=== PATIENT | female | born 1960 | race Caucasian/White ===

== ENCOUNTER → 2018-06-20 | Outpatient (REF) | payer OTHER | LOC: M LAB REF 17:30 | DX: R05 Cough (principal) ==

== ENCOUNTER → 2018-06-26 | Outpatient (CLI) | payer OTHER | LOC: M RAD 10:31 | DX: J43.9 Emphysema, unspecified (principal); J84.10 Pulmonary fibrosis, unspecified | CPT/HCPCS: 71250 ==

== ENCOUNTER → 2018-12-29 | Outpatient (CLI) | payer OTHER ==
[~2018-12-29] MED LIST: /ADVA50050 IN; /DULO30CA OR; AMIT10TA2 PO; CELE10TA PO; CENESTIN PO; CITRACEL; LYRI75CA OR; MELOPOW OR; PRIL20CA OR; PRILOSEC OTC OR; TYLENOL ES PO; VIACTIV OR; ZANT150T PO; [UNRECOGNIZED DRUG - OTHER]; [UNRECOGNIZED DRUG - OTHER] PO; citracal PO
[2018-12-29 12:46] LABS: BLOOD UREA NITROGEN 7 MG/DL (7-18); CREATININE FOR GFR 0.66 MG/DL (0.55-1.30); GLOMERULAR FILTRATION RATE > 60.0 (>51)
== END ==
LOC: M LAB 12:04
PROVIDERS: ATTEND Internal Medicine Pulmonary Disease
DX: J43.2 Centrilobular emphysema (principal)

== ENCOUNTER → 2019-01-01 | Outpatient (CLI) | payer OTHER ==
[~2019-01-01] MED LIST changes: -/ADVA50050 IN; -/DULO30CA OR; +ADVA1AER2 IN; +CYMB1CAP5 OR; +ISOVUE-370 76% 125ML VIAL (Q9967 PER ML) As Ordered ONE
--- NOTE | 2019-01-01 10:21 | REP ---
CT STUDY OF THE CHEST WITH IV CONTRAST: HISTORY: Nonspecific abnormal lung field findings. Comparison CT study June 26, 2018. April 05, [address] is also reviewed. CT CONTRAST DOSE: 75 mL of intravenous Isovue 370. CT FINDINGS: Preliminary hose cementer images are unremarkable. There are emphysematous changes again noted in the upper lobes, right a little more extensively than left. There is minimal linear fibrosis in the bases. No pulmonary nodule is seen. No infiltrate or mass lesion is observed. There is no evidence of pleural or pericardial effusion. No hilar or mediastinal mass or adenopathy has developed. There are some scattered normal-sized mediastinal lymph nodes. These are felt to be unchanged from comparison study April 20, 2018. No extrathoracic mass or adenopathy is seen. There are three small focal low density areas in the liver consistent with cysts. These are unchanged. No infiltrate is seen. No adrenal lesion is observed on either side. Accessory splenules are noted in the left upper quadrant. IMPRESSION: Emphysematous changes noted in the upper lobes and bibasilar linear fibrosis. Otherwise no active cardiopulmonary disease seen. Electronically Signed by Dony Ambrosio MD 01/01/2019 01:16 P
== END ==
LOC: M RAD 09:23
PROVIDERS: ATTEND Internal Medicine Pulmonary Disease
DX: R91.8 Other nonspecific abnormal finding of lung field (principal)
CPT/HCPCS: 71260; Q9967

== ENCOUNTER → 2019-12-24 | Outpatient (CLI) | payer OTHER ==
[~2019-12-24] MED LIST changes: -ISOVUE-370 76% 125ML VIAL (Q9967 PER ML) As Ordered ONE
--- NOTE | 2019-12-24 11:43 | REP ---
Clinical: Lung screening. History smoking. Comparison: 01/01/2019, 06/26/2018, 04/05/2018 Technique: Axial low-dose noncontrast images from the thoracic inlet to the upper abdomen using lung screening technique. Findings: The lung champion are well-aerated. Mild emphysematous changes are appreciated along with minimal basilar scarring primarily noted at the base of the lingula. Small amount of dependent changes at the posterior right base also identified. Calcified granuloma in the anterior right lower lobe (image 71) noted. No consolidation, significant nodule or mass lesion is appreciated. No pleural effusion/reaction or pneumothorax. Tracheobronchial tree is patent. Mediastinum demonstrates mild atherosclerotic changes of the coronary arteries without cardiomegaly. Impression: Lung-RADS category II. Nonacute benign findings. No suspicious nodule or abnormality. Management recommendations include annual low-dose follow-up examination. Electronically Signed by Delfino Norris MD 12/24/2019 11:34 A
== END ==
LOC: M RAD 10:11
PROVIDERS: ATTEND Internal Medicine Pulmonary Disease
DX: F17.218 Nicotine dependence, cigarettes, with other nicotine-induced disorders (principal)

== ENCOUNTER → 2020-09-29 | Outpatient (REF) | payer OTHER | LOC: M LAB REF 16:44 | PROVIDERS: ATTEND Internal Medicine Pulmonary Disease | DX: J44.9 Chronic obstructive pulmonary disease, unspecified (principal) ==

== ENCOUNTER → 2021-01-04 | Outpatient (CLI) | payer OTHER ==
--- NOTE | 2021-01-04 11:37 | REP ---
INDICATION: LUNG SCREENING COMPARISON: 12/24/2019, 04/19/2018 TECHNIQUE: Axial noncontrast images from the thoracic inlet to the upper abdomen using low-dose lung screening technique (LDCT). FINDINGS: 16 mm noncalcified lesion with subtle spiculated margin in the apical right lower lobe represents a new finding and is consistent with malignancy unless proven otherwise. IMPRESSION: New 16 mm lesion in the apical right upper lobe is most consistent with neoplasm and requires further investigation. PET-CT and biopsy are recommended. <Electronically signed by Delfino Norris > 01/04/21 [id number]
== END ==
LOC: M RAD 10:20
PROVIDERS: ATTEND Internal Medicine Pulmonary Disease
DX: Z12.2 Encounter for screening for malignant neoplasm of respiratory organs (principal); R91.8 Other nonspecific abnormal finding of lung field; F17.218 Nicotine dependence, cigarettes, with other nicotine-induced disorders

== ENCOUNTER → 2021-01-26 | Outpatient (REF) | payer OTHER ==
[2021-01-26 18:26] LABS: PLATELET COUNT, AUTOMATED 302 10^3/uL (150-450)
[2021-01-26 18:44] LABS: BLOOD UREA NITROGEN 5 MG/DL (7-18); CREATININE FOR GFR 0.62 MG/DL (0.55-1.30); GLOMERULAR FILTRATION RATE > 60.0 (>45)
[2021-01-26 18:45] LABS: INR 0.93; PROTHROMBIN TIME 12.7 SECONDS (12.5-14.3)
== END ==
LOC: M LAB REF 16:50
PROVIDERS: ATTEND Internal Medicine Pulmonary Disease
DX: Z01.812 Encounter for preprocedural laboratory examination (principal); R91.1 Solitary pulmonary nodule

== ENCOUNTER → 2021-02-08 | Outpatient (CLI) | payer OTHER ==
[~2021-02-08] MED LIST changes: +ISOVUE-370 76% 100ML VIAL As Ordered ONE
--- NOTE | 2021-02-09 06:23 | REP ---
INDICATION: SOLITARY PULMONARY NODULE COMPARISON: Multiple examinations between 01/04/2021 and 04/19/2018 TECHNIQUE: Axial contrast enhanced images from the thoracic inlet to the upper abdomen with coronal and sagittal reformations using 75 ml Isovue 370 intravenous contrast [address] CT examination was performed using the following dose reduction techniques: Automated exposure control, adjustment of mA and/or kv according to the patient's size, and use of iterative reconstruction technique. FINDINGS: The 16 mm mass in the apical right lower lobe with mild spiculated margins is unchanged from most recent prior examination and represents a new finding as compared through examinations dating back through 04/19/2018. Right hilar lymph node measuring up to approximately 13 mm short axis diameter is identified along with smaller nonspecific mediastinal lymph nodes. No further nodule, mass or pleural effusion. Chronic COPD/emphysematous disease along with mild bibasilar fibroatelectatic changes are noted. IMPRESSION: 1. 16 mm spiculated lesion in the apical right lower lobe with 13 mm right hilar lymph node. As previously suggested, PET-CT and biopsy are recommended. 2. Underlying COPD/emphysematous disease with mild bibasilar fibroatelectatic changes. <Electronically signed by Delfino Norris > 02/09/21 0619
== END ==
LOC: M RAD 11:02
PROVIDERS: ATTEND Internal Medicine Pulmonary Disease
DX: R91.1 Solitary pulmonary nodule (principal)

== ENCOUNTER → 2021-02-09 | Outpatient (CLI) | payer OTHER ==
[~2021-02-09] MED LIST changes: +ADV500INH INH; +ALB2.5NEB INH; +AMIT75TA PO; +ATOR1TAB21 PO; +CALTCHW5 PO; +D31000TA2 PO; +DULO1CAP5 PO; +FISH1000 PO; +GABA600T4 PO; +INCR1INH INH; -ISOVUE-370 76% 100ML VIAL As Ordered ONE; +OMEP40CA97 PO; +PROAAER10 INH; +VITATAB73 PO
--- NOTE | 2021-02-09 14:26 | PFTRPT ---
Height: 66.50 Inches Weight: 185.00 Lbs BSA: 1.95 Diagnosis: R91.1 DATE: 02/09/2021 ORDERING PHYSICIAN: SEDRICK MURDOCK MD Pre and post bronchodilator studies have excellent technical quality. Forced vital capacity is reduced. FEV1 out of proportion. Obstructive index is therefore reduced. Expiratory limit of the flow-volume loop is consistent with significant flow rate limitation. Significant bronchodilator response is identified. Total lung capacity is elevated. Residual volume borderline for entrapment. Diffusing capacity is significantly reduced and does not correct for alveolar volume. Hemoglobin is acceptable at 14.3. Airway resistance and conductance are normal. IMPRESSION: 1. At least moderate obstructive ventilatory impairment with underlying air trapping and significant emphysema suspected. 2. Favorable bronchodilator response. Please correlate clinically. MTDD
== END ==
LOC: M CARPUL 13:51
PROVIDERS: ATTEND Internal Medicine Pulmonary Disease
DX: R91.1 Solitary pulmonary nodule (principal)

== ENCOUNTER → 2021-02-12 | Outpatient (CLI) | payer OTHER ==
--- NOTE | 2021-02-12 20:44 | ECGEPIP ---
[facility] Test Date: 2021-02-12 Pat Name: JOURDAN SMITH Department: Room: - Gender: Female Unit Supervisor: RONNY : 1960 Requested By: CHARLEE Simental Order Number: [id number] Reading MD: Gerardo Young Measurements Intervals [place] Rate: 87 P: 74 [place]: 164 QRS: 58 QRSD: 82 T: 66 QT: 362 QTc: 435 Interpretive Statements Normal sinus rhythm Within normal limits. No prior ECG available for comparison at the time of interpretation. Electronically Signed on 02-12-2021 20:43:46 EDT by Gerardo Young
== END ==
LOC: M CARPUL 14:45
PROVIDERS: ATTEND Anesthesiology
DX: Z01.818 Encounter for other preprocedural examination (principal)

== ENCOUNTER 2021-02-15 06:11 | Day surgery (SDC) | payer OTHER ==
[~2021-02-15] VITALS: Ht 167.6 cm; Wt 79.4 kg
[~2021-02-15 06:11] MED LIST changes: +ALBUTEROL SULFATE 2.5 MG/0.5 ML INH NEB SOLN INH ONE; +LIDOCAINE 4% INJ 5ML AMP INH ONE; +LR 1,000 ML IV ONE
[2021-02-15] MEDS ORDERED: THROMBIN SOLN 20,000 UNITS KIT As Ordered ONE (07:17)
[2021-02-15] MEDS ORDERED: CETACAINE SPRAY 5GM As Ordered ONE (07:17)
[2021-02-15] MEDS ORDERED: LIDOCAINE 4% TOPICAL SOLN 50 ML BTL As Ordered ONE (07:17)
[2021-02-15] MEDS ORDERED: LIDOCAINE VISCOUS 2% SOLN 15ML UDC As Ordered ONE (07:17)
[2021-02-15] MEDS ORDERED: LIDOCAINE 1% SDV 30ML VIAL As Ordered ONE (07:17)
[2021-02-15] MEDS ORDERED: EPINEPHrine 1MG/10ML SYRINGE 1.5IN As Ordered ONE (07:17)
[2021-02-15] MEDS ORDERED: fentaNYL 100 MCG/2 ML INJECTION (J3010) As Ordered ONE (07:19)
[2021-02-15] MEDS ORDERED: dexameTHASONE 4 MG/ML 1ML VIAL (J1100 PER 1MG) As Ordered ONE (07:19)
[2021-02-15] MEDS ORDERED: ONDANSETRON 4MG/2ML VIAL As Ordered ONE ×2 (07:19→08:22)
[2021-02-15] MEDS ORDERED: ROCURONIUM BROMIDE 50 MG/5 ML VIAL As Ordered ONE (07:19)
[2021-02-15] MEDS ORDERED: propofoL 200 MG/20 ML VIAL As Ordered ONE (07:19)
[2021-02-15] MEDS ORDERED: LIDOCAINE 2% 100MG/5ML SDV (FOR ANES.) As Ordered ONE (07:19)
[2021-02-15] MEDS ORDERED: MIDAZOLAM INJ 2MG/2ML VIAL (J2250 PER 1MG) As Ordered ONE (07:19)
[2021-02-15] MEDS ORDERED: SUGAMMADEX SODIUM 500 MG/5 ML VIAL (BRIDION) As Ordered ONE (08:22)
[2021-02-15] MEDS ORDERED: PHENYLephrine 500MCG 5ML (100MCG/ML) SYRINGE As Ordered ONE (08:23)
[2021-02-15] MEDS ORDERED: SEVOFLURANE INHAL SOLN 250 ML BTL As Ordered ONE (08:30)
[2021-02-15] MEDS ORDERED: fentaNYL 100 MCG/2 ML INJECTION (J3010) IV PRN (10:10)
[2021-02-15] MEDS ORDERED: LR 1,000 ML IV SCH (10:10)
[2021-02-15] MEDS ORDERED: oxyCODONE 5MG TAB PO PRN (10:10)
[2021-02-15] MEDS ORDERED: ONDANSETRON 4MG/2ML VIAL IV PRN (10:10)
--- NOTE | 2021-02-15 10:27 | RO ---
OPERATIVE NOTE DATE OF OPERATION: 02/15/2021 PREOPERATIVE DIAGNOSIS: Abnormal chest CT, right lower lobe lesion. POSTOPERATIVE DIAGNOSIS: Abnormal chest CT, right lower lobe lesion. FINDINGS: Smoker's airways, banding and pitting and mucus. PROCEDURE: Bronchoscopy with [place] navigation and endobronchial ultrasound. SURGEON: Larry Kim DO TRAFFIC CIRCUIT ENGINEER: Gerardo Soares DO SPECIMENS OBTAINED: 1. Right lower lobe cytology brush. 2. Right lower lobe transbronchial biopsy. 3. Fine needle aspiration transbronchial biopsy. 4. BAL right lower lobe. 5. Fine needle aspiration subcarinal node. ANESTHESIA: General. ESTIMATED BLOOD LOSS: Less than 5 mL. DRAINS: No drains. DESCRIPTION OF PROCEDURE: After informed consent was reviewed in the preoperative area, the patient was brought back to OR number 8. General anesthesia was initiated with an 8.5 endotracheal tube and the case was handed over to me. A time-out was performed with two patient identifiers, identifying correct site and correct procedure along with coordinating name and date of on [employer] platform. Cetacaine spray was used to anesthetize the airway along with providing lubrication for the 1T190 bronchoscope. The 1T190 bronchoscope was then inserted into the trachea. The luciana was fairly sharp. There was mucus in the left mainstem bronchus. There was some banding throughout the airways but otherwise left and right mainstem bronchi were normal. RB1-10 was normal except for some minimal pitting. LB1-10 again normal except for minimal amounts of mucus and pitting. There were no endobronchial lesions. After airway exam, the 1T190 bronchoscope was removed and the robotic [place] platform was initiated. Automatic registration was performed and then the lesion was attempted to be navigated in the superior basal segment of the right lower lobe. There was not exact approximation of the lesion. However, with fluroscopy biopsies were attempted. Forceps biopsies were not able to be obtained due to the flexion of the scope for the majority of the testing. First cytology brush was obtained, then forceps biopsies, then fine needle aspiration. This was followed by bronchoalveolar lavage. After adequate sampling, bronchoscope was removed. Airways were then suctioned out with a 1T190 bronchoscope. The linear endobronchial ultrasound was then inserted. I viewed the right pretracheal area which showed a 4 mm node and a subcarinal right-sided lesion which was just approximately a cm. The cm node was unobtainable. Therefore this was biopsied. After sampling was performed, bronchoscope was removed. Airways were suctioned and there were no observed complications. The patient in recovery. Post-procedure chest x-ray is pending.
--- NOTE | 2021-02-15 10:29 | REP ---
INDICATION: OPST OP IN PACU. COMPARISON: 04/07/2018. TECHNIQUE: Single portable AP view of the chest was performed. FINDINGS: No acute infiltrate or pneumothorax is seen. The heart is normal in size. The mediastinal silhouette is unremarkable. IMPRESSION: No acute pulmonary disease. <Electronically signed by Keon Lorenzana > 02/15/21 1026
[2021-02-15] MEDS ORDERED: ALBUTEROL SULFATE 2.5 MG/0.5 ML INH NEB SOLN INH ONE (10:35)
[2021-02-15] MEDS ORDERED: LACRILUBE (AKWA TEARS) OPHTH OINT 3.5 GM As Ordered ONE (10:56)
[2021-02-15 11:12] VITALS: BP 110/59
== END 2021-02-15 11:43 | disposition home or self-care (01) ==
LOC: M SDC 06:11
PROVIDERS: ATTEND Internal Medicine Pulmonary Disease
DX: R91.1 Solitary pulmonary nodule (principal); R91.8 Other nonspecific abnormal finding of lung field; J44.9 Chronic obstructive pulmonary disease, unspecified; K22.70 Barrett's esophagus without dysplasia; K44.9 Diaphragmatic hernia without obstruction or gangrene; F32.9 Major depressive disorder, single episode, unspecified; J38.1 Polyp of vocal cord and larynx; M79.7 Fibromyalgia; F17.218 Nicotine dependence, cigarettes, with other nicotine-induced disorders; Z79.899 Other long term (current) drug therapy; Z79.1 Long term (current) use of non-steroidal anti-inflammatories (NSAID); Z99.81 Dependence on supplemental oxygen
CPT/HCPCS: 31623; 31624; 31628; 31629; 31653; 71045; 76000; 88104; 88108; 88173; 88305; 88313; 88342; J1100; J2250; J2370; J2405; J3010; S2900

== ENCOUNTER → 2021-02-22 | Outpatient (CLI) | payer OTHER ==
[~2021-02-22] MED LIST changes: -ALBUTEROL SULFATE 2.5 MG/0.5 ML INH NEB SOLN INH ONE; -LIDOCAINE 4% INJ 5ML AMP INH ONE; -LR 1,000 ML IV ONE
== END ==
LOC: M PLARAD 10:43
PROVIDERS: ATTEND Internal Medicine Pulmonary Disease
DX: R91.1 Solitary pulmonary nodule (principal); Z53.9 Procedure and treatment not carried out, unspecified reason

== ENCOUNTER → 2021-05-12 | Outpatient (CLI) | payer OTHER ==
[~2021-05-12] MED LIST changes: +ACETAMINOPHEN 325 MG TAB As Ordered ONE; +CYMB60CA3 PO; +DULO30CA47 PO; +FAMO40TA3 PO; +FLUT1BLS6 INH; +HOME MED LIST COMPLETE! XX SCH; +LIDOCAINE 1% MDV 20ML VIAL As Ordered ONE; +MIDAZOLAM INJ 2MG/2ML VIAL (J2250 PER 1MG) As Ordered ONE; +NICO21DI6 TOP; +OMEP40CA4 PO; -OMEP40CA97 PO; +OYST500T92 PO; +PNEU0.5I2 IM; +SODIUM BICARBONATE 8.4% INJ 50MEQ 50 ML VIAL As Ordered ONE; +TIZA1TAB12 PO; +VENTAER INH; +VITMIN PO; +oxygen
[2021-05-12 09:05] LABS: INR 0.99; PROTHROMBIN TIME 13.5 SECONDS (12.7-14.5)
[2021-05-12 09:07] LABS: PARTIAL THROMBOPLASTIN TIME 32.5 SECONDS (25.9-37.0)
--- NOTE | 2021-05-12 11:40 | REP ---
INDICATION: RIGHT PNEUMO, 2 VIEW. COMPARISON: 05/12/2021 9:55 a.m. TECHNIQUE: PA and lateral views FINDINGS: Approximately 50% right pneumothorax persists showing no interval change compared with the earlier exam done today. IMPRESSION: No interval change in right pneumothorax. <Electronically signed by Rufino Rendon > 05/12/21 1130
[2021-05-12 15:07] VITALS: BP 116/68
--- NOTE | 2021-05-12 15:08 | REP ---
INDICATION: POST PNEUMO, 2 VIEW. COMPARISON: 05/12/2021 11:33 a.m. TECHNIQUE: Two views FINDINGS: A 50% right pneumothorax. Post biopsy changes adjacent to the right hilum. No interval change since earlier exam. IMPRESSION: No interval change. 50% right pneumothorax. <Electronically signed by Rufino Rendon > 05/12/21 [id number]
--- NOTE | 2021-05-12 15:45 | REP ---
INDICATION: POST RIGHT LUNG BIOPSY, 2 VIEW. COMPARISON: Comparison chest x-ray February 15, 2021.. TECHNIQUE: PA and lateral views of the chest. FINDINGS: There is a moderate size right sided pneumothorax post biopsy. There is no observable mediastinal shift. Heart is not enlarged. Left lung is clear. The right lower lobe pulmonary parenchymal mass which was the target of the biopsy is seen. IMPRESSION: Moderate size right-sided pneumothorax post needle biopsy. Our thoracic surgeon Dr. Duran has been apprised of these findings and plans to attend the patient. <Electronically signed by Mauricio Ambrosio > 05/12/21 6241
--- NOTE | 2021-05-12 15:46 | REP ---
INDICATION: RLL LUNG NODULE. COMPARISON: None. TECHNIQUE: The procedure is performed by Taylor Nicole [facility], under the direct supervision of Dr. Ambrosio. The risks and benefits of the procedure were explained to the patient and informed consent was obtained both orally and written. Directly prior to the start of the procedure, a formal timeout was done in the exam room. The right lung mass was localized using CT guidance. Skin was prepped and draped in the usual sterile fashion. Five ml of buffered lidocaine was used as a local anesthetic. FINDINGS: Using CT guidance a 19/20 gauge coaxial needle biopsy system was inserted and advanced into the nodule. Eight core biopsy samples were obtained and sent to the lab. CT images obtained directly after the biopsy demonstrated a pneumothorax. This pneumothorax was followed by serial chest x-rays. Dr. Duran was consulted, and the patient was held for 5 hours. During her convalescence the pneumothorax did not progress, and patient's O2 saturation was at her baseline prior to the biopsy on room air. It was decided to let the patient go home under the strict instructions that if anything should change she is to report immediately to the closest ER. The patient will come back tomorrow for a follow-up chest x-ray. IMPRESSION: CT-guided right lung biopsy. <Electronically signed by Taylor Nicole > 05/12/21 1534 <Electronically signed by Mauricio Ambrosio > 05/12/21 1543
== END ==
LOC: M IRPRO 08:17
PROVIDERS: ATTEND Thoracic Surgery (Cardiothoracic Vascular Surgery)
DX: C34.31 Malignant neoplasm of lower lobe, right bronchus or lung (principal); J95.811 Postprocedural pneumothorax
CPT/HCPCS: 32408; 77012; 85610; 85730; 88305; 88341; 88342; J2250

== ENCOUNTER 2021-05-13 18:57 | Inpatient (IN) | payer OTHER ==
[~2021-05-13] VITALS: Ht 167.6 cm; Wt 80.4 kg
[2021-05-13] VITALS (12 sets, daily range): BP systolic 122–143; BP diastolic 67–84; O2SAT 95–97
[~2021-05-13 18:57] MED LIST changes: -OYST500T92 PO; -POTASSIUM CHLORIDE 10 MEQ SR TABLET PO ONE; -TIZA1TAB12 PO
[2021-05-13] MEDS ORDERED: ONDANSETRON 4MG/2ML VIAL IV PRN (19:40)
[2021-05-13] MEDS ORDERED: ACETAMINOPHEN TAB 650MG DOSE (2X325MG) PO PRN (19:40)
[2021-05-13] MEDS ORDERED: NORCO, ANEXSIA 5/325MG TABLET (HYDROcodone/ACETAMINOPHEN) PO PRN (19:40)
[2021-05-13] MEDS ORDERED: LEVALBUTEROL 1.25 MG/0.5 ML CONCENTRATE NEB NEB PRN (19:40)
[2021-05-13] MEDS ORDERED: PERCOCET 5MG/325MG TAB PO PRN ×2 (19:40)
[2021-05-13] MEDS ORDERED: BISACODYL 10 MG SUPP PR PRN (19:40)
[2021-05-13] MEDS ORDERED: flumazeniL 0.5 MG/5 ML VIAL As Ordered ONE (19:55)
[2021-05-13] MEDS ORDERED: LIDOCAINE 1% MDV 20ML VIAL As Ordered ONE (19:56)
[2021-05-13] MEDS ORDERED: MIDAZOLAM INJ 2MG/2ML VIAL (J2250 PER 1MG) As Ordered ONE (19:56)
[2021-05-13] MEDS ORDERED: MIDAZOLAM INJ 2MG/2ML VIAL (J2250 PER 1MG) IV STA ×2 (20:23→20:25)
[2021-05-13 20:27] LABS: BASO % 0.2 % (0.0-1.0); EOS # 0.2 10^3/uL (0.0-0.5); EOS % 1.9 % (0.0-3.0); HEMATOCRIT 37.2 % (36.0-47.0); HEMOGLOBIN 12.3 g/dl (12.0-15.5); LYMPH # 1.2 10^3/uL (1.5-5.0); LYMPH % 14.4 % (24.0-44.0); MEAN CORPUSCULAR HEMOGLOBIN 28.3 pg (27.0-33.0); MEAN CORPUSCULAR HGB CONC 33.1 g/dl (32.0-36.5); MEAN CORPUSCULAR VOLUME 85.5 fl (80.0-96.0); MONO # 0.7 10^3/uL (0.0-0.8); MONO % 8.4 % (2.0-8.0); NEUTROPHILS # 6.1 10^3/uL (1.5-8.5); NEUTROPHILS % 74.7 % (36.0-66.0); PLATELET COUNT, AUTOMATED 253 10^3/uL (150-450); RED BLOOD COUNT 4.35 10^6/uL (4.00-5.40); WHITE BLOOD COUNT 8.1 10^3/uL (4.0-10.0)
[2021-05-13] MEDS ORDERED: LIDOCAINE 1% MDV 20ML VIAL SC ONE (20:45)
--- NOTE | 2021-05-13 20:50 | REPVR ---
PROCEDURE INFORMATION: Exam: XR Chest Exam date and time: 05/13/2021 8:40 PM Age: 61 years old Clinical indication: Device placement; Other: Chest tube placement; Additional info: After chest tube placed TECHNIQUE: Imaging protocol: XR of the chest. Views: 1 view. COMPARISON: CR Chest, 2 view PA, Lat 05/13/2021 3:08 PM FINDINGS: Tubes, catheters and devices: Right apical chest tube in position since a study done earlier in the day. Lungs: Right lung atelectasis or scar is unchanged. Minimal lateral left base atelectasis since the prior study. Pleural spaces: Decreased right pneumothorax with mild residual in the lateral right base. Heart/Mediastinum: Unremarkable. No cardiomegaly. Bones/joints: Unremarkable. IMPRESSION: 1. Interval placement of chest tube in the lateral right apex since a study done earlier in the day with decreased right pneumothorax. Mild residual remains in the right base. 2. Minimal lateral left base subsegmental atelectasis which is slightly increased. 3. Otherwise stable chest. Electronically signed by: Talat Reyes On 05/13/2021 20:49:58 PM
[2021-05-13 20:54] LABS: BLOOD UREA NITROGEN 4 MG/DL (7-18); CALCIUM LEVEL 8.9 MG/DL (8.8-10.2); CARBON DIOXIDE LEVEL 30 MEQ/L (21-32); CHLORIDE LEVEL 99 MEQ/L (98-107); CREATININE FOR GFR 0.57 MG/DL (0.55-1.30); GLOMERULAR FILTRATION RATE > 60.0 (>45); GLUCOSE, FASTING 112 MG/DL (70-100); POTASSIUM SERUM 3.2 MEQ/L (3.5-5.1); SODIUM LEVEL 132 MEQ/L (136-145)
[2021-05-13] MEDS: KCL 20MEQ IN D5/NS 1000ML 1,000 ML IV SCH (20:58)
[2021-05-13] MEDS: LEVALBUTEROL 1.25 MG/0.5 ML CONCENTRATE NEB NEB SCH (21:42)
[2021-05-13] MEDS ORDERED: TIZA1TAB12 PO (22:01)
[2021-05-13] MEDS ORDERED: OYST500T92 PO (22:01)
[2021-05-13] MEDS ORDERED: HOME MED LIST COMPLETE! XX SCH (22:05)
[2021-05-13] MEDS: KETOROLAC 30 MG/ML 1ML VIAL IV SCH (22:31)
[2021-05-13] MEDS: DOCUSATE SODIUM 100MG CAPSULE PO SCH (22:31)
[2021-05-13] MEDS: HEPARIN SOD (PORCINE) 5000UNITS/ML 1ML VIAL/SYRINGE SC SCH (22:32)
[2021-05-14] VITALS (24 sets, daily range): BP systolic 100–115; BP diastolic 56–65; O2SAT 90–100
[2021-05-14] MEDS: VITAMIN D 1,000 INTERNATIONAL UNITS TABLET PO SCH ×2 (00:37→20:55)
[2021-05-14] MEDS: AMITRIPTYLINE 25MG TABLET PO SCH ×2 (00:40→20:54)
[2021-05-14] MEDS: LEVALBUTEROL 1.25 MG/0.5 ML CONCENTRATE NEB NEB SCH ×4 (02:00→19:50)
[2021-05-14] MEDS: KETOROLAC 30 MG/ML 1ML VIAL IV SCH ×3 (04:29→17:04)
[2021-05-14 04:53] LABS: BASO % 0.3 % (0.0-1.0); EOS # 0.1 10^3/uL (0.0-0.5); EOS % 1.8 % (0.0-3.0); HEMATOCRIT 31.7 % (36.0-47.0); HEMOGLOBIN 10.6 g/dl (12.0-15.5); LYMPH # 1.2 10^3/uL (1.5-5.0); LYMPH % 17.7 % (24.0-44.0); MEAN CORPUSCULAR HEMOGLOBIN 28.7 pg (27.0-33.0); MEAN CORPUSCULAR HGB CONC 33.4 g/dl (32.0-36.5); MEAN CORPUSCULAR VOLUME 85.9 fl (80.0-96.0); MONO # 0.5 10^3/uL (0.0-0.8); MONO % 8.2 % (2.0-8.0); NEUTROPHILS # 4.7 10^3/uL (1.5-8.5); NEUTROPHILS % 71.7 % (36.0-66.0); PLATELET COUNT, AUTOMATED 223 10^3/uL (150-450); RED BLOOD COUNT 3.69 10^6/uL (4.00-5.40); WHITE BLOOD COUNT 6.6 10^3/uL (4.0-10.0)
[2021-05-14 05:15] LABS: BLOOD UREA NITROGEN 5 MG/DL (7-18); CALCIUM LEVEL 8.4 MG/DL (8.8-10.2); CARBON DIOXIDE LEVEL 30 MEQ/L (21-32); CHLORIDE LEVEL 102 MEQ/L (98-107); CREATININE FOR GFR 0.46 MG/DL (0.55-1.30); GLOMERULAR FILTRATION RATE > 60.0 (>45); GLUCOSE, FASTING 118 MG/DL (70-100); POTASSIUM SERUM 4.1 MEQ/L (3.5-5.1); SODIUM LEVEL 136 MEQ/L (136-145)
[2021-05-14] MEDS: TIOTROPIUM INHALER/CAPSULE (SPIRIVA) INH SCH (07:15)
--- NOTE | 2021-05-14 08:23 | REP ---
INDICATION: after chest tube placed. COMPARISON: 05/13/2021 TECHNIQUE: Two views FINDINGS: The right lung remains well expanded with chest tube in place. A nodule is noted adjacent to the right hilum and there are post biopsy changes adjacent to the right hilum. Resolution of atelectasis at and densities at the right base since yesterday's examination. Improved resolution of atelectasis at the left base when compared to the previous study with minimal persistent atelectasis. Heart not enlarged. No failure. IMPRESSION: Improving appearance of the lung bases. Right lung fully expanded with chest tube in place. <Electronically signed by Rufino Rendon > 05/14/21 0819
[2021-05-14] MEDS ORDERED: DULoxetine 30 MG CAP (CYMBALTA) PO SCH (09:00)
[2021-05-14] MEDS: MOM 30ML SUSPENSION UDC PO SCH (10:00)
[2021-05-14] MEDS: HEPARIN SOD (PORCINE) 5000UNITS/ML 1ML VIAL/SYRINGE SC SCH ×2 (10:00→20:55)
[2021-05-14] MEDS: DULoxetine 30 MG CAP (CYMBALTA) PO SCH (10:01)
[2021-05-14] MEDS: GABAPENTIN 300 MG CAP PO SCH (10:01)
[2021-05-14] MEDS: DOCUSATE SODIUM 100MG CAPSULE PO SCH ×2 (10:01→20:54)
[2021-05-14] MEDS: PANTOPRAZOLE 40MG TAB (PROTONIX) PO SCH (10:01)
[2021-05-14] MEDS: ATORVASTATIN 20 MG TAB PO SCH (10:01)
[2021-05-14] MEDS: KCL 20MEQ IN D5/NS 1000ML 1,000 ML IV SCH (10:10)
--- NOTE | 2021-05-14 11:47 | REP ---
INDICATION: progression of tumor. COMPARISON: Chest x-ray done yesterday. TECHNIQUE: Scans were obtained without contrast administration. FINDINGS: Right chest tube in satisfactory position without evidence of pneumothorax. Spiculated mass in the right upper lobe measuring 2.6 x 1.5 cm and in the superior segment of the right lower lobe measuring 4.2 x 2 cm. Labs in both lungs. Small right pleural effusion. Adrenal glands not enlarged. Small cyst right lobe of the liver. No hilar or mediastinal adenopathy. IMPRESSION: Spiculated masses in the right upper lobe and right lower lobe. Right lung fully expanded with a chest tube in place with small right pleural effusion. <Electronically signed by Rufino Rendon > 05/14/21 1148
--- NOTE | 2021-05-14 12:30 | RO ---
OPERATIVE NOTE DATE OF OPERATION: 05/13/2021 PREOPERATIVE DIAGNOSIS: Right pneumothorax. POSTOPERATIVE DIAGNOSIS: Right pneumothorax. PROCEDURE: Insertion of anterior-superior chest tube. SURGEON: Dr. Ralph Duran DESCRIPTION OF PROCEDURE: Under satisfactory moderate sedation achieved with 4 mg of Versed, patient was prepped and draped in the usual sterile fashion. The first intercostal space just above the 2nd rib was infiltrated with 1% lidocaine from the skin to the pleura. Incision was made, and a tunnel was created in the chest. There was a gush of air that emanated from the incision. A #20 chest tube was placed without difficulty. It was secured to the chest wall with a #2 Tevdek suture and connected to the Pleur-evac. Patient tolerated the procedure well, and a chest x-ray is pending.
--- NOTE | 2021-05-14 12:37 | IPN ---
PROGRESS NOTE DATE: 05/14/2021 This is now the first hospital day for Mrs. Payan after having a chest tube placed for a pneumothorax after a lung needle biopsy. Today she is doing quite well. She is breathing much better than she did last night prior to the chest tube insertion. Her pain is being well controlled at the chest tube insertion site. There is no air leak. Her vital signs show a maximum temperature of 97.9 with a heart rate that ranges between 69-78 in a sinus rhythm, respiratory rate of 17-18 without the use of accessory muscles, who is 90-100 saturated on 4 liters nasal cannula and whose blood pressure is ranging between 115/64 to 101/57. Her intake and output for the past 24 hours have been recorded as 825 in and 554 out, for a positivity of 271 mL. She has put 4 mL out the chest tube, and, as noted above, there is no air leak. She weighs 79 kg, the same as yesterday. PHYSICAL EXAMINATION: Her lungs show equal breath sounds on either side. There are no wheezes, rhonchi, or rales. Percussion note is full to the diaphragm. Cardiac exam is without murmurs, clicks, gallops, or rubs. I cannot feel her point of maximal impulse (PMI). S1 and S2 are normal. Abdomen is soft and nontender. Bowel sounds are positive. There is no hepatomegaly. No costovertebral angle (CVA) tenderness. Extremities show no pretibial edema, no calf tenderness, no differential swelling of the upper extremities. Skin is warm, dry, and perfused without cyanosis or mottling, including that of the nailbeds and knees. Neck is supple. There is no jugular venous distention. No subcutaneous emphysema. Trachea is midline. Mouth shows the mucous membranes to be pink and moist. Lips and commissures without lesions. No thrush. Eyes show her pupils to be equal and reactive. Extraocular motion intact. Sclerae anicteric. Neurologic shows II-XII intact. Normal gross motor, gross sensation intact. Gait is not tested. Psychiatric shows her to be awake, alert, and oriented times three with appropriate mood and affect and conversational. Her white count today is 6.6 with a hemoglobin and hematocrit of 10.6 and 31.7, down from 12.3 and 32.7, probably secondary to hemodilution. Platelet count is 223 and stable, and differential shows 71% neutrophils, 17% lymphocytes, 8% monocytes. There are no immature forms or toxic granulations. Her electrolytes are normal with a BUN and creatinine of 5 and 0.46, a glucose of 118, and a calcium of 8.4. Her chest x-ray shows her lung fully expanded to the chest wall. Her costophrenic angles are sharp. The right lung mass is seen on the lateral film in the mid portion of the chest. IMPRESSION: 1. Pneumothorax status post needle biopsy. 2. Poorly differentiated adenocarcinoma. 3. Chronic obstructive pulmonary disease (COPD). 4. Hyperlipidemia. 5. Depression. PLAN AND DISCUSSION: I will discontinue her chest tube suction today. If the x-ray is satisfactory tomorrow I will discontinue the chest tube and take a chest x-ray 6 hours later, and if that is satisfactory I will discharge her tomorrow afternoon. She will return to see me and discuss treatment strategy for her expanding right lower lobe lesion.
--- NOTE | 2021-05-14 16:47 | HPE ---
HISTORY AND PHYSICAL DATE OF ADMISSION: 05/13/2021 HISTORY OF PRESENT ILLNESS: Ms. Payan is a 61-year-old white female who underwent a lung biopsy yesterday under CT guidance. Pneumothorax was seen after the biopsy. In consultation with me, it was followed for six hours and seemed to be getting slightly better. She is absolutely asymptomatic and therefore asked interventional radiology to send her home to repeat a chest x-ray today. Chest x-ray today was obtained, which showed a worsening pneumothorax particularly inferiorly. Concurrent with that she has become more short of breath and having more chest discomfort and pain. Her daughter therefore called me and I expected them to come to the hospital. She is an inveterate smoker of 50 pack years of one pack per day, who has undergone early detection lung cancer screening every year and is found to have a newly appearing right lower lobe speculated lesion on the last examination. She has known chronic obstructive pulmonary disease (COPD) and she is chronically short of breath. She states that she is able to walk about half a mile, but is noticeably out of breath at the end of that. She has difficulty climbing stairs where she has stop for about 5 minutes at the first landing. Her daughter noted two weeks ago while walking up a ramp to her house that she needed to stop and help her get up the ramp. She denies fevers, chills or sweats, but has noted a 10 pound weight loss in the last six months. Her appetite has been decreasing. Prior to her needle biopsy, there was no chest pain, no chest discomfort and no dysphagia or chocking with eating. PAST MEDICAL HISTORY: Barrette's esophagus along with gastroesophageal reflux disease, chronic obstructive pulmonary disease (COPD), depression. PAST SURGERIES: Just a colonoscopy and esophagoscopy. MEDICATIONS: AT HOME: Albuterol 2.5 mg q.i.d. as needed for shortness of breath, Ventolin 2 puffs q 6 hours as needed for shortness of breath. Amitriptyline 75 mg every night at bedtime, atorvastatin 20 mg daily, calcium carbonate with D3 one chew every night at bedtime and Cymbalta 60 mg daily and 30 mg every night at bedtime, famotidine 40 mg daily,Fluticasone propionate/salmeterol one puff twice a day, gabapentin 600 mg twice a day, omeprazole 40 mg twice a day, Incruse Ellipta 62.5 mg one puff every night at bedtime and vitamin B complex one daily. TRAVEL HISTORY: She has a positive travel history to the [facility], but no foreign travel EXPOSURE: She has four dogs at home and cats, but no birds. One of her dogs is a black Labrador. 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 She has no known exposures to tuberculosis. She did have one tuberculosis test prior to employment which was negative. HABITS: Rarely involves alcohol and there are no illicit drugs, with the above smoking history. REVIEW OF SYSTEMS: Constitutional: Without fevers, chills, sweats or night sweats. Eyes: Without diplopia, visual loss or amaurosis fugax or prior jaundice. Wears glasses. Nose: Without epistaxis. Mouth: Wears full upper dentures. Pulmonary: See history of present illness. Cardiac: Denies prior myocardial infarctions, anginal type chest pain, intermittent claudication, peripheral edema, hypertension. Gastrointestinal (GI): Without nausea, vomiting, diarrhea or constipation, melena or hematochezia. Does have gastroesophageal reflux disease. Genitourinary (): Without hematuria or dysuria . Neuro: Without paresthesias, paralyses or prior seizures. Psychiatric: He is being treated for depression. Endocrine: Without diabetes or thyroid disease. Hematologic: Without prolonged bleeding times. PHYSICAL EXAMINATION: Well-developed, well-nourished, white female in no acute distress. Vital signs: Blood pressure is 125/70 with a pulse of 92 and sinus rhythm, respiratory rate of 18 without the use of accessory muscles who is 96% saturated on room air, whose temperature is still pending. Eyes: Pupils equal, round and reactive to light. Extraocular motions intact Sclerae nonicteric. Nose: Without deformity. Mouth: Shows mucous membranes to be pink and moist. Lips and commissures: No lesions and no thrush. Neck is supple with no jugular venous distention. No subcutaneous emphysema. Trachea is midline. She has 2+ carotid upstrokes without bruits, without thyromegaly or lymphadenopathy. Lungs show decreased breath sounds on the right side with full percussion of diaphragm on either side. Left side shows normal vesicular sounds without wheeze, rhonchi or rales. Abdomen: Soft, nontender. Bowel sounds positive. No hepatomegaly. No costovertebral angle (CVA) tenderness. Cardiac examination: Without murmurs, clicks, gallops or rubs. I can not feel her PMI. S1, S2 are normal. Extremities: Showed no pretibial edema. No calf tenderness. No differential swelling of upper extremities. Skin is warm, dry and perfuse without cyanosis or mottling including nailbeds and knees. Neuro: CN II-XII intact with gross motor intact. Gait is not tested. Psychiatric: Alert, awake and oriented times 3 with appropriate mood and affect and conversational. Lymphatics: Without supraclavicular, infraclavicular or cervical or axillary lymphadenopathy. INVESTIGATIONS: White count is 8.1 with a hemoglobin and hematocrit of 12.3 and 37.2 with a platelet count of 253. Differential shows 74% neutrophils, 14% lymphocytes, 8% monocytes. No immature forms or toxic granulations. Her sodium is 132 with a potassium of 3.2. BUN and creatinine of 4 and 0.57. Glucose is 112. Calcium is 8.9. PT/INR is 13.5 and 0.99 respectively with a PTT of 32.5 seconds. Her chest x-ray as discussed above. CT scan on 02/08/2021, showed a speculated right lower lobe lesion, which measures approximately 1.4 cm. There is a mediastinal node that looks to have a lucent center that measures 1.5 cm. There are diffuse emphysematous changes, particularly in the upper lobes. Adrenals have a normal configuration. I see no liver lesions. Her PET scan done [facility] shows the right lower lobe lesion to be hypermetabolic. Her lung biopsy, chest CT is markedly changed, which shows a much larger right lower lobe lesion, which now measures 4.2 cm x 1.2 cm, which now is a satellite lesion. Her pathology has been reported back as poor differentiated adenocarcinoma. Her FEV1 is 1.28, which is 46% predicted and her DFCO is 11.12, which is 49% predicted. A lobectomy would leave her with an FEV1 of approximately 35% predicted and diffusion capacity of 35% of predicted. IMPRESSION: 1. Pneumothorax after biopsy 2. Poorly differentiated adenocarcinoma. 3. Mediastinal lymphadenopathy. 4. Chronic obstructive pulmonary disease (COPD). 5. Gastroesophageal reflux disease. 6. Depression. PLAN AND DISCUSSION: I will immediately place a chest tube to relieve her pneumothorax. I will have to formulate a treatment plan. Surgery may be off the table for both resectability and physiologic pulmonary function reasons.
[2021-05-15 00:08] VITALS: BP 114/62
[2021-05-15] MEDS: KETOROLAC 30 MG/ML 1ML VIAL IV SCH ×4 (00:17→17:52)
[2021-05-15] MEDS: LEVALBUTEROL 1.25 MG/0.5 ML CONCENTRATE NEB NEB SCH ×3 (01:11→13:12)
[2021-05-15 04:00] VITALS: BP 127/60
[2021-05-15 05:05] LABS: BASO % 0.3 % (0.0-1.0); EOS # 0.2 10^3/uL (0.0-0.5); EOS % 2.4 % (0.0-3.0); HEMATOCRIT 31.6 % (36.0-47.0); HEMOGLOBIN 10.5 g/dl (12.0-15.5); LYMPH # 1.2 10^3/uL (1.5-5.0); LYMPH % 18.2 % (24.0-44.0); MEAN CORPUSCULAR HEMOGLOBIN 28.5 pg (27.0-33.0); MEAN CORPUSCULAR HGB CONC 33.2 g/dl (32.0-36.5); MEAN CORPUSCULAR VOLUME 85.9 fl (80.0-96.0); MONO # 0.5 10^3/uL (0.0-0.8); MONO % 7.7 % (2.0-8.0); NEUTROPHILS # 4.5 10^3/uL (1.5-8.5); NEUTROPHILS % 70.9 % (36.0-66.0); PLATELET COUNT, AUTOMATED 243 10^3/uL (150-450); RED BLOOD COUNT 3.68 10^6/uL (4.00-5.40); WHITE BLOOD COUNT 6.4 10^3/uL (4.0-10.0)
[2021-05-15 05:25] LABS: BLOOD UREA NITROGEN 6 MG/DL (7-18); CALCIUM LEVEL 8.6 MG/DL (8.8-10.2); CARBON DIOXIDE LEVEL 31 MEQ/L (21-32); CHLORIDE LEVEL 105 MEQ/L (98-107); CREATININE FOR GFR 0.49 MG/DL (0.55-1.30); GLOMERULAR FILTRATION RATE > 60.0 (>45); GLUCOSE, FASTING 97 MG/DL (70-100); POTASSIUM SERUM 4.3 MEQ/L (3.5-5.1); SODIUM LEVEL 138 MEQ/L (136-145)
[2021-05-15] MEDS: TIOTROPIUM INHALER/CAPSULE (SPIRIVA) INH SCH (07:27)
[2021-05-15 08:00] VITALS: BP 105/59
--- NOTE | 2021-05-15 08:38 | REP ---
INDICATION: after chest tube placed. COMPARISON: Eight hundred thirteen 20:18 a.m. TECHNIQUE: Two views FINDINGS: The chest tube remains in satisfactory position on the right side. The right lung is fully expanded. Post biopsy changes and right perihilar nodule are noted. No interval change since yesterday's examination IMPRESSION: The right lung remains fully expanded with chest tube in place. <Electronically signed by Rufino Rendon > 05/15/21 [id number]
[2021-05-15] MEDS: DOCUSATE SODIUM 100MG CAPSULE PO SCH (09:54)
[2021-05-15] MEDS: DULoxetine 30 MG CAP (CYMBALTA) PO SCH (09:54)
[2021-05-15] MEDS: GABAPENTIN 300 MG CAP PO SCH (09:54)
[2021-05-15] MEDS: ATORVASTATIN 20 MG TAB PO SCH (09:54)
[2021-05-15] MEDS: HEPARIN SOD (PORCINE) 5000UNITS/ML 1ML VIAL/SYRINGE SC SCH (09:54)
[2021-05-15] MEDS: PANTOPRAZOLE 40MG TAB (PROTONIX) PO SCH (09:54)
[2021-05-15] MEDS: MOM 30ML SUSPENSION UDC PO SCH (09:55)
[2021-05-15 12:00] VITALS: BP 127/83
--- NOTE | 2021-05-15 12:13 | DSES ---
DISCHARGE SUMMARY DATE OF ADMISSION: 05/13/2021 DATE OF DISCHARGE: 05/15/2021 DISCHARGE DIAGNOSES: 1. Pneumothorax status post lung biopsy. 2. Poorly differentiated adenocarcinoma, minimum stage IIIA disease. 3. Mediastinal lymphadenopathy. 4. Chronic obstructive pulmonary disease. 5. Gastroesophageal reflux. 6. Depression. HOSPITAL COURSE: Patient is a 61-year-old white female who underwent a lung biopsy on 05/12/2021. Pneumothorax was seen after the biopsy. She was essentially asymptomatic, although the pneumothorax was about 15%. She was followed for 6 hours, and the pneumothorax seemed to be getting better on the chest x-ray. The morning after her lung biopsy she became more short of breath with more pain, and her chest x-ray showed increasing pneumothorax. She was therefore admitted to the hospital, where she underwent an anterior-superior chest tube insertion. The lung fully expanded to the chest wall, and there was no air leak. On the second hospital day, the chest tube was removed after being off suction for 24 hours with an x-ray that showed the lung fully expanded to the chest wall. A chest x-ray will be taken in 6 hours, and if that is satisfactory, we will discharge her. Her discharge white count is 6.4 with a hemoglobin and hematocrit of 10.5 and 31.6. Electrolytes are normal with a BUN and creatinine of 6 and 0.49. Her chest x-ray showed her lung fully expanded to the chest wall. A CT scan was done one day prior to discharge. It was done on the needle biopsy localization that the tumor had markedly grown. I was suspicious that it actually had crossed the fissure. Chest CT indeed showed the same with a separate nodule in the right upper lobe adjacent to the one in the right lower lobe. This therefore makes her a T4N0M0 lesion, which matched to stage IIIA. There is also a suspicion that she may have a positive mediastinal node, but that would still map to IIIA, being a T4N1M0 lesion. As such, she will probably not be a candidate for resectional surgery. I will see her back in the office in 1 week for further discussion of therapeutic options. She is being discharged on her home medications, which include: - albuterol nebulizer 2.5 mg four times a day. as needed for shortness of breath - Ventolin two puffs every 6 hours as needed for shortness of breath - amitriptyline 75 mg every night - atorvastatin 20 mg daily - duloxetine 90 mg daily and - famotidine 40 mg daily - gabapentin 600 mg twice a day - omeprazole 40 mg twice a day - tizanidine 2 mg as needed for muscle cramps three times a day - Incruse Ellipta 62.5 mg one puff every night - various vitamins and calcium She has been instructed to remove the dressing in the morning and then leave the wound open to air. She may shower at that time. She has a vacation planned in [place], which is a 6-hour drive, for which I have given her permission to undertake. I have asked her not to do any heavy lifting.
[2021-05-15 16:00] VITALS: BP 118/66
--- NOTE | 2021-05-15 17:03 | REP ---
INDICATION: pneumothx. COMPARISON: None. TECHNIQUE: Two views FINDINGS: The right lung is fully expanded. The chest tube has been removed. There is no evidence of pneumothorax. No interval change and right perihilar nodule. IMPRESSION: The right lung remains fully expanded after removal of the chest tube. <Electronically signed by Rufino Rendon > 05/15/21 [id number]
== END 2021-05-15 18:43 | disposition home or self-care (01) | DRG 143 ==
LOC: M PCU 19:51
PROVIDERS: ADMIT Thoracic Surgery (Cardiothoracic Vascular Surgery); ATTEND Thoracic Surgery (Cardiothoracic Vascular Surgery)
PROC: 0W9930Z Drainage of Right Pleural Cavity with Drainage Device, Percutaneous Approach (ICD-10-PCS; principal; 2021-05-13)
DX: J95.811 Postprocedural pneumothorax (principal); C34.90 Malignant neoplasm of unspecified part of unspecified bronchus or lung; F32.9 Major depressive disorder, single episode, unspecified; J44.9 Chronic obstructive pulmonary disease, unspecified; K21.9 Gastro-esophageal reflux disease without esophagitis; Z79.899 Other long term (current) drug therapy; F17.200 Nicotine dependence, unspecified, uncomplicated

== ENCOUNTER → 2021-05-13 | Outpatient (CLI) | payer OTHER ==
[~2021-05-13] MED LIST changes: -ACETAMINOPHEN 325 MG TAB As Ordered ONE; -HOME MED LIST COMPLETE! XX SCH; -LIDOCAINE 1% MDV 20ML VIAL As Ordered ONE; -MIDAZOLAM INJ 2MG/2ML VIAL (J2250 PER 1MG) As Ordered ONE; +POTASSIUM CHLORIDE 10 MEQ SR TABLET PO ONE; -SODIUM BICARBONATE 8.4% INJ 50MEQ 50 ML VIAL As Ordered ONE
--- NOTE | 2021-05-13 15:22 | REP ---
INDICATION: SOLITARY PULMONARY NODULE. COMPARISON: 05/12/2021 the latest prior TECHNIQUE: PA and lateral FINDINGS: Once again, there is a right-sided pneumothorax. It appears slightly less in volume compared to the prior exam. There are no other significant changes. IMPRESSION: Possible slight decrease in size of the right pneumothorax. The change may be clinically insignificant. This needs to be correlated clinically with follow-up. <Electronically signed by Olu Downing > 05/13/21 [id number]
== END ==
LOC: M RAD 14:37
PROVIDERS: ATTEND Thoracic Surgery (Cardiothoracic Vascular Surgery)
DX: R91.1 Solitary pulmonary nodule (principal)

== ENCOUNTER → 2021-05-25 | Outpatient (CLI) | payer OTHER ==
[~2021-05-25] MED LIST changes: +OYST500T92 PO; +TIZA1TAB12 PO
--- NOTE | 2021-05-25 16:23 | REP ---
INDICATION: SOLITARY PULMONARY NODULE COMPARISON: None. TECHNIQUE: PA and lateral. FINDINGS: There is a moderate to significant area of relatively new ill-defined opacity extending from the right hilum posterolaterally to the peripheral pleural surface concerning for an acute process. The remainder lung champion demonstrate age-related interstitial changes. The cardiac silhouette is normal. No pneumothorax. No definite effusion. Skeletal structures are intact. IMPRESSION: Area of opacity in the right mid lung zone extending from the hilum to the periphery concerning for acute process and significantly increased when compared from 05/15/2021. <Electronically signed by Delfino Norris > 05/25/21 [id number]
== END ==
LOC: M PLAIMG 15:34
PROVIDERS: ATTEND Thoracic Surgery (Cardiothoracic Vascular Surgery)
DX: R91.1 Solitary pulmonary nodule (principal)

== ENCOUNTER → 2021-06-02 | Outpatient (CLI) | payer OTHER ==
[~2021-06-02] MED LIST changes: +PROHANCE 279.3MG/ML 15ML VIAL As Ordered ONE
--- NOTE | 2021-06-03 04:08 | REPVR ---
PROCEDURE INFORMATION: Exam: MR Head Without and With Contrast Exam date and time: 06/02/2021 3:24 PM Age: 61 years old Clinical indication: Walking, difficulty; Additional info: Unsteadiness on feet, HX of lung CA TECHNIQUE: Imaging protocol: MR of the head without and with intravenous contrast. Contrast material: PROHANCE; Contrast volume: 15 ml; Contrast route: INTRAVENOUS (IV); COMPARISON: PT PET/CT SKULL BASE TO MID THIGH - OUTSIDE PRIOR 03/31/2021 1:26 PM FINDINGS: Brain: No restricted diffusion within the brain to suggest an acute infarct. There are scattered small foci of FLAIR hyperintensity within the cerebral white matter. There is no mass effect or restricted diffusion associated with these foci. In a patient this age, this likely represents chronic small vessel ischemic disease. No cerebral edema. No abnormally enhancing intracranial mass is identified. Mild age-appropriate prominence of the sulci. Cerebral ventricles: No ventriculomegaly. Bones/joints: Unremarkable, as visualized. Paranasal sinuses: Normal as visualized. No acute sinusitis. Mastoid air cells: Minimal mucosal thickening of mastoid air cells bilaterally. Orbital cavity: Artifact limits evaluation of the orbits. Soft tissues: Unremarkable, as visualized. IMPRESSION: 1. No acute infarct. 2. No abnormally enhancing intracranial mass is identified. 3. Mild white matter disease, likely representing chronic small vessel ischemic disease. 4. Additional findings described above. Electronically signed by: Kerwin Honeycutt On 06/03/2021 04:07:18 AM
== END ==
LOC: M RAD 14:07
PROVIDERS: ATTEND Thoracic Surgery (Cardiothoracic Vascular Surgery)
DX: R26.81 Unsteadiness on feet (principal); C34.11 Malignant neoplasm of upper lobe, right bronchus or lung; C34.31 Malignant neoplasm of lower lobe, right bronchus or lung
CPT/HCPCS: 70553; A9576

== ENCOUNTER 2021-06-04 15:19 | Emergency (ER) | payer OTHER ==
[~2021-06-04] VITALS: Ht 170.2 cm; Wt 76.7 kg
[~2021-06-04 15:19] MED LIST changes: -PROHANCE 279.3MG/ML 15ML VIAL As Ordered ONE
[2021-06-04 16:31] LABS: BASO # 0.1 10^3/uL (0.0-0.2); BASO % 0.3 % (0.0-1.0); EOS # 0.2 10^3/uL (0.0-0.5); EOS % 1.4 % (0.0-3.0); HEMOGLOBIN 10.6 g/dl (12.0-15.5); LYMPH # 1.2 10^3/uL (1.5-5.0); LYMPH % 7.4 % (24.0-44.0); MEAN CORPUSCULAR HEMOGLOBIN 27.7 pg (27.0-33.0); MEAN CORPUSCULAR HGB CONC 34.2 g/dl (32.0-36.5); MEAN CORPUSCULAR VOLUME 80.9 fl (80.0-96.0); MONO # 1.2 10^3/uL (0.0-0.8); MONO % 7.5 % (2.0-8.0); NEUTROPHILS # 13.7 10^3/uL (1.5-8.5); NEUTROPHILS % 82.6 % (36.0-66.0); PLATELET COUNT, AUTOMATED 622 10^3/uL (150-450); RED BLOOD COUNT 3.83 10^6/uL (4.00-5.40); WHITE BLOOD COUNT 16.6 10^3/uL (4.0-10.0)
[2021-06-04 16:56] LABS: ALBUMIN 2.1 GM/DL (3.2-5.2); ALT/SGPT 17 U/L (12-78); BILIRUBIN,DIRECT 0.2 MG/DL (0.0-0.2); BILIRUBIN,TOTAL 0.5 MG/DL (0.2-1.0); BLOOD UREA NITROGEN 5 MG/DL (7-18); CALCIUM LEVEL 8.3 MG/DL (8.8-10.2); CARBON DIOXIDE LEVEL 31 MEQ/L (21-32); CHLORIDE LEVEL 89 MEQ/L (98-107); CK-MB VALUE MASS 1.6 NG/ML (<3.6); CPK CREATINE PHOSPHOKINASE 52 U/L (26-192); CREATININE FOR GFR 0.52 MG/DL (0.55-1.30); GLOMERULAR FILTRATION RATE > 60.0 (>45); GLUCOSE, FASTING 103 MG/DL (70-100); MB/CK RELATIVE INDEX 3.08 (< OR =4); POTASSIUM SERUM 3.1 MEQ/L (3.5-5.1); SODIUM LEVEL 128 MEQ/L (136-145); TOTAL PROTEIN 6.1 GM/DL (6.4-8.2); TROPONIN I < 0.02 NG/ML (< 0.10)
[2021-06-04] MEDS ORDERED: ISOVUE-370 76% 100ML VIAL As Ordered ONE (17:01)
[2021-06-04] MEDS ORDERED: POTASSIUM CHLORIDE 10 MEQ SR TABLET PO ONE (17:15)
[2021-06-04] MEDS ORDERED: MORPHINE 4 MG/ML 1ML VIAL/SYRINGE (J2270) IV ONE (17:20)
--- NOTE | 2021-06-04 17:44 | REPVR ---
PROCEDURE INFORMATION: Exam: CTA Chest With Contrast Exam date and time: 06/04/2021 5:05 PM Age: 61 years old Clinical indication: Other: R/O pe, chest pain TECHNIQUE: Imaging protocol: Computed tomographic angiography of the chest with contrast. 3D rendering (Not supervised by radiologist): MIP and/or 3D reconstructed images were created by the technologist. Radiation optimization: All CT scans at this facility use at least one of these dose optimization techniques: automated exposure control; mA and/or kV adjustment per patient size (includes targeted exams where dose is matched to clinical indication); or iterative reconstruction. Contrast material: ISOVUE 370; Contrast volume: 75 ml; Contrast route: INTRAVENOUS (IV); COMPARISON: CT ANGIO CHEST - OUTSIDE PRIOR 04/05/2018 12:00 AM FINDINGS: Pulmonary arteries: Normal. No pulmonary emboli. Aorta: Unremarkable. No aortic aneurysm. No aortic dissection. Lungs: Focal segmental atelectasis and consolidation in the superior segment of the right lower lobe containing areas of cavitation and low-density liquefaction/necrosis. Calcified granuloma right lower lobe. Pleural spaces: Unremarkable. No pneumothorax. No pleural effusion. Heart: Unremarkable. No cardiomegaly. No pericardial effusion. Mediastinal space: Accessory spleen measuring 1.6 cm inferior to the splenic hilum. Lymph nodes: Subcentimeter lymph nodes noted in the prevascular and AP window. Pretracheal and right paratracheal adenopathy with the largest right paratracheal lymph node measuring 1.5 x 1.5 by approximately 1.9 cm. . Liver: The liver is low in density. Two low-density lesions segment 7 right lobe of the liver measuring 0.9 and 0.5 cm respectively. Liver is not imaged in its entirety. Adrenal glands: Low-density left adrenal mass measuring 1.7 cm in diameter (4 H) Stomach and bowel: Gastric wall thickening noted but the stomach is completely decompressed which may account for this. Bones/joints: Compression deformity of the T6 vertebral body. Soft tissues: Unremarkable. IMPRESSION: 1. No acute pulmonary embolism. 2. Cavitary pneumonia superior segment right upper lobe. Infectious etiologies including granulomatous disease should be considered. 3. Compression deformity of T6 vertebral body adjacent to/contiguous with the right lower lobe necrotizing pneumonia. The contour deformity could be related to trauma but discitis/vertebral osteomyelitis are other possibilities. MRI might be considered 4. Hepatic steatosis. 5. Two subcentimeter low-density liver lesions not fully characterized.In a low-risk patient, this lesion is most likely to be benign and no further follow-up is recommended. In a high-risk patient, recommend follow-up MRI in 3-6 months (or earlier if warranted by the patient's specific clinical circumstances). 6. Benign left adrenal adenoma.No follow-up is necessary. (Reference: Aman) REFERENCES: Aman HADDAD, et al. Management of Incidental Adrenal Masses: A White Paper of the ACR Incidental Findings Committee. J Am Julia Radiol. 2017;14(8):2808-6385. The Electronically signed by: Sonja Nieves On 06/04/2021 17:43:42 PM
[2021-06-04 18:00] VITALS: BP 130/60
[2021-06-04] MEDS ORDERED: OXYC1TAB23 PO (18:02)
--- NOTE | 2021-06-05 06:43 | ED PDOC ---
Post-Departure Follow-Up dr frances faxed report of ct chest for fu Jonnie Bhardwaj MD Jun 05, 2021 06:43
--- NOTE | 2021-06-07 16:32 | ECGEPIP ---
[facility] - ED Test Date: 2021-06-04 Pat Name: JOURDAN SMITH Department: Room: - Gender: Female Mac[employer]i [employer]: : 1960 Requested By: MARGOT Whitmore Order Number: [id number] Reading MD: Heydi Jeter Measurements Intervals [place] Rate: 99 P: 80 UT: 176 QRS: 44 QRSD: 138 T: 81 QT: 398 QTc: 510 Interpretive Statements Normal sinus rhythm Left bundle branch block new 02/12/21 Electronically Signed on 06-07-2021 16:32:15 EDT by Heydi Jeter
== END 2021-06-04 18:30 | disposition home or self-care (01) ==
LOC: M ED 15:19
DX: R07.9 Chest pain, unspecified (principal); I44.7 Left bundle-branch block, unspecified; R91.8 Other nonspecific abnormal finding of lung field; K76.0 Fatty (change of) liver, not elsewhere classified; C34.90 Malignant neoplasm of unspecified part of unspecified bronchus or lung; K22.70 Barrett's esophagus without dysplasia; K21.9 Gastro-esophageal reflux disease without esophagitis; F32.9 Major depressive disorder, single episode, unspecified; J44.9 Chronic obstructive pulmonary disease, unspecified; F17.200 Nicotine dependence, unspecified, uncomplicated; Z79.899 Other long term (current) drug therapy
CPT/HCPCS: 71275; 80048; 80076; 82550; 82553; 85025; 93005; 93041; 94760; 96374; 99285; J2270; Q9967